=== PATIENT | female | born 1990 | race Caucasian/White ===

== ENCOUNTER 2020-02-05 18:30 | Inpatient (IN) | payer BC ==
[2020-02-05 19:31] LABS: BASO % 0.1 % (0-2.0); EOS % 0.2 % (0-4.5); HEMATOCRIT 36.1 % (32.4-45.2); HEMOGLOBIN 12.2 GM/dL (10.7-15.3); LYMPH % 15.4 % (8-40); MCH 31.8 pg (25.7-33.7); MCHC 33.7 g/dl (32.0-36.0); MEAN CELL VOLUME 94.5 fl (80-96); MEAN PLT VOLUME 9.3 fl (7.5-11.1); MONO % 6.3 % (3.8-10.2); PLATELET COUNT 255 K/MM3 (134-434); RBC 3.82 M/mm3 (3.60-5.2); RDW 12.8 % (11.6-15.6)
[2020-02-05 19:36] LABS: EPI CELLS >36 /uL (0-25.1); HYALINE CASTS 3 /uL (0-3.1); URINE APPEARANCE CLEAR; URINE BACTERIA 1818 /uL (0-1359); URINE BILIRUBIN NEGATIVE (NEGATIVE); URINE COLOR YELLOW; URINE GLUCOSE (UA) NEGATIVE (NEGATIVE); URINE KETONE NEGATIVE (NEGATIVE); URINE LEUK ESTERASE NEGATIVE (NEGATIVE); URINE NITRITE NEGATIVE (NEGATIVE); URINE PROTEIN 3+ (NEGATIVE); URINE RBC 12 /uL (0-23.9); URINE UROBILINOGEN 0.2 mg/dL (0.2-1.0); URINE WBC 41 /uL (0-25.8)
[2020-02-05 19:39] LABS: INR 0.82 (0.83-1.09); PROTHROMBIN TIME (PATIENT) 9.6 SEC (9.7-13.0)
[2020-02-05 19:42] LABS: ACTIVATED PTT 27.8 SECONDS (25.2-36.5)
[2020-02-05 20:06] LABS: ALBUMIN 2.6 g/dl (3.4-5.0); BILIRUBIN,TOTAL 0.2 mg/dL (0.2-1); BLOOD UREA NITROGEN 15.7 mg/dL (7-18); CALCIUM 9.4 mg/dL (8.5-10.1); CREATININE 0.7 mg/dL (0.55-1.3); POTASSIUM 4.2 mmol/L (3.5-5.1); TOT PROT 6.1 g/dl (6.4-8.2); URIC ACID 5.2 mg/dL (2.6-7.2)
[2020-02-05] MEDS: ELECTROLYTE-148 SOLN 1,000 ML IV SCH (21:00)
[2020-02-05] MEDS ORDERED: PROMETHAZINE HCL 25 MG/1 ML VIAL IVPUSH ONE (21:09)
[2020-02-05] MEDS ORDERED: BUTORPHANOL TARTRATE 1 MG/ML VIAL IVPUSH ONE (21:09)
[2020-02-05] MEDS ORDERED: BETAMET ACET/BETAMET NA PH 30 MG/5 ML VIAL IM ONE (21:13)
--- NOTE | 2020-02-05 21:13 | HP ---
Past Medical History - Primary Care Physician PCP:: Monserrat Cee - Admission Chief Complaint: 29yo P0 @ 36.3wks with sever Preeclampsia, +FM, no VB, + mild ctx, no LOF,. currently denies RODRIGUEZ, visual changes, RUQ pain History of Present Illness: 1. Noted +4 Proteinuria and 150/100 BP in the office 2. MHTFR/Protrombin mutations positive, Mother and aunt had DVT, no anticoagulant during History Source: Patient Limitations to Obtaining History: No Limitations - Past Medical History ...: 1 ...Para: 0 ...Term: 0 ...: 0 ...Spon : 0 ...Induced : 0 ...Living Children: 0 ...EDC by Sono: 03/01/20 - Past Surgical History Past Surgical History: Yes: None Hx Myomectomy: No Hx Transabdominal Cerclage: No - Smoking History Smoking history: Never smoked Have you smoked in the past 12 months: No - Alcohol/Substance Use Hx Alcohol Use: No History of Substance Use: reports: None - Social History Usual Living Arrangement: Yes: With Spouse History of Recent Travel: No Home Medications - Allergies Allergies/Adverse Reactions: Allergies Allergy/AdvReac Type Severity Reaction Status Date / Time No Known Allergies Allergy Verified 02/05/20 19:05 - Home Medications Home Medications: Ambulatory Orders Tablet 1 tab PO DAILY 02/05/20 Review of Systems - Review of Systems Constitutional: reports: No Symptoms Eyes: reports: No Symptoms HENT: reports: No Symptoms Neck: reports: No Symptoms Cardiovascular: reports: No Symptoms Respiratory: reports: No Symptoms Gastrointestinal: reports: No Symptoms Genitourinary: reports: No Symptoms Breasts: reports: No Symptoms Reported Musculoskeletal: reports: No Symptoms Integumentary: reports: No Symptoms Neurological: reports: No Symptoms Endocrine: reports: No Symptoms Hematology/Lymphatic: reports: No Symptoms Psychiatric: reports: No Symptoms Physical Exam - Maternity Vital Signs: Vital Signs Temperature 98.0 F 02/05/20 18:50 Pulse Rate 89 02/05/20 19:00 Respiratory Rate 18 02/05/20 19:00 Blood Pressure 158/93 02/05/20 19:00 O2 Sat by Pulse Oximetry (%) Constitutional: Yes: Well Nourished, No Distress, Calm Eyes: Yes: WNL HENT: Yes: WNL, Atraumatic Neck: Yes: WNL, Supple, Trachea Midline Cardiovascular: Yes: WNL, Regular Rate and Rhythm Lungs: Clear to auscultation Breast(s): Yes: WNL - Abdominal Exam/OB Fundal Height: 35 Number of Fetuses: Single Presentation: Vertex Contractions: Yes Regularity: Regular Intensity: Mild Monitor Mode: External Heart Rate (range): 140 Heart Rate Location: Midline Category: I Accelerations: Uniform Decelerations: None - Vaginal Exam/OB Vaginal Bleeding: No Speculum Exam: No Dilatation (cm): 1-2 Effacement (%): 50% Amniotic Membrane Status: Intact Presentation: Vertex/Position Station: -3 - Physical Exam Musculoskeletal: Yes: WNL Extremities: Yes: WNL Integumentary: Yes: WNL ...Motor Strength: WNL Psychiatric: Yes: WNL, Alert, Oriented - Labs Lab Results: CBC, BMP 02/05/20 18:00 02/05/20 18:00 Assessment/Plan 29yo Po @ 36.3wks with sever Preeclapsia, early labor Admit to L&D Monitor BP @ 30min StART MgSo4 for seizure prophylaxis IVP antiHTN for BP <160/105 Labs-CBC,Metabolic pannel, Mg level Q4hr Monitor for Mg toxicity Celestone for FLM, due to prematurity Early labor, regular contructions, will start on Pitocin for augmentation Pain medication as needed We had long discussion re: risks, benefits, and alternatives of labor induction. I explained the options of expectant management awaiting spontaneous labor, induction of labor, and elective section. The risks of uterine tachysystole, distress, uterine rupture, need for emergency C/S, hemorrhage, infection, scarring, etc. were discussed.
[2020-02-05] MEDS ORDERED: BETAMET ACET/BETAMET NA PH 30 MG/5 ML VIAL ONE (21:14)
[2020-02-05] MEDS ORDERED: ELECTROLYTE-148 SOLN 1,000 ML IV SCH (21:15)
[2020-02-05] MEDS ORDERED: MAGNESIUM 4GM/H20 - 4 GM/100 ML IVPB IVPB ONE (21:15)
[2020-02-05] MEDS ORDERED: LABETALOL HCL 5 MG/1 ML (100MG/20 ML VIAL) ONE (21:15)
[2020-02-05] MEDS: LABETALOL HCL 5 MG/1 ML (100MG/20 ML VIAL) IVPUSH SCH ×2 (21:25→21:45)
[2020-02-05] MEDS: MAGNESIUM 4GM/H20 - 4 GM/100 ML IVPB IVPB SCH (21:40)
[2020-02-05] MEDS ORDERED: MAGNESIUM SULFATE 20GM/500ML - 20 GM/500 ML INFUS.BAG ONE (22:10)
[2020-02-05] MEDS: MAGNESIUM SULFATE 20GM/500ML - 20 GM/500 ML INFUS.BAG IVPB SCH (22:15)
[2020-02-06 00:28] LABS: BASO % 0.1 % (0-2.0); EOS % 0.1 % (0-4.5); HEMATOCRIT 35.2 % (32.4-45.2); HEMOGLOBIN 11.7 GM/dL (10.7-15.3); LYMPH % 8.9 % (8-40); MCH 31.4 pg (25.7-33.7); MCHC 33.2 g/dl (32.0-36.0); MEAN CELL VOLUME 94.5 fl (80-96); MEAN PLT VOLUME 9.1 fl (7.5-11.1); MONO % 2.3 % (3.8-10.2); NEUT % 88.6 % (42.8-82.8); PLATELET COUNT 238 K/MM3 (134-434); RBC 3.73 M/mm3 (3.60-5.2); RDW 12.7 % (11.6-15.6); WHITE BLOOD COUNT 15.3 K/mm3 (4.0-10.0)
[2020-02-06] MEDS ORDERED: OXYTOCIN 30 UNITS in 0.9% NS 30 UNIT/500 ML INFUS.BAG IVPB ONE (00:38)
[2020-02-06] MEDS: OXYTOCIN 30 UNITS in 0.9% NS 30 UNIT/500 ML INFUS.BAG IVPB SCH (00:45)
[2020-02-06 00:57] LABS: ALBUMIN 2.4 g/dl (3.4-5.0); BILIRUBIN,DIRECT 0.1 mg/dL (0.0-0.2); BILIRUBIN,TOTAL 0.3 mg/dL (0.2-1); CREATININE 0.7 mg/dL (0.55-1.3); MAGNESIUM 4.7 mg/dL (1.8-2.4); TOT PROT 5.7 g/dl (6.4-8.2)
[2020-02-06 01:57] VITALS: BMI 28.3
[2020-02-06 04:45] LABS: MAGNESIUM 5.9 mg/dL (1.8-2.4)
[2020-02-06 04:48] LABS: CREATININE 0.8 mg/dL (0.55-1.3)
[2020-02-06] MEDS ORDERED: MAGNESIUM SULFATE 20GM/500ML - 20 GM/500 ML INFUS.BAG ONE ×2 (08:20→23:29)
[2020-02-06 08:56] LABS: CREATININE 0.7 mg/dL (0.55-1.3)
[2020-02-06] MEDS ORDERED: AMPICILLIN SODIUM 2 GM VIAL ONE (09:21)
--- NOTE | 2020-02-06 12:05 | EKG ---
Test Reason : Blood Pressure : / mmHG Vent. Rate : 099 BPM Atrial Rate : 099 BPM P-R Int : 114 ms QRS Dur : 084 ms QT Int : 364 ms P-R-T Axes : 068 072 042 degrees QTc Int : 467 ms NORMAL SINUS RHYTHM POSSIBLE LEFT ATRIAL ENLARGEMENT BORDERLINE ECG NO PREVIOUS ECGS AVAILABLE Confirmed by MD Isidro, Jarret ([id number]) on 02/06/2020 12:04:57 PM Referred By: Confirmed By:Jarret Felix MD
--- NOTE | 2020-02-06 12:06 | PN ---
Progress Note, Labor Vaginal Exam #1 Labor Exam Date: 02/06/20 Labor Exam Time: 07:00 Heart Rate (range): 145, Category 1 Dilatation: 3 Effacement (%): 75% Amniotic Membrane Status: Intact Presentation: Vertex/Position Station: -3 Remarks: 29yo P0 @ 36.4wks with sever Preeclampsia, on MgSo4, undergoing IOL no SOB, no RUQ pain or RODRIGUEZ VSS, no s/s of Mg toxicity cont. Pitocin induction monitor labs Q 4hr, currently stable, no worsening
[2020-02-06] MEDS: AMPICILLIN - 1 GM in SODIUM CHLORIDE 100 ML IVPB SCH ×3 (13:20→21:00)
[2020-02-06] MEDS ORDERED: AMPICILLIN SODIUM 1 GM VIAL ONE ×3 (13:25→21:00)
[2020-02-06 14:24] LABS: CREATININE 0.7 mg/dL (0.55-1.3)
[2020-02-06 14:28] LABS: ALBUMIN 2.4 g/dl (3.4-5.0); BASO % 0.1 % (0-2.0); BILIRUBIN,DIRECT 0.1 mg/dL (0.0-0.2); BILIRUBIN,TOTAL 0.3 mg/dL (0.2-1); HEMATOCRIT 37.8 % (32.4-45.2); HEMOGLOBIN 12.5 GM/dL (10.7-15.3); LYMPH % 6.6 % (8-40); MCH 31.5 pg (25.7-33.7); MEAN CELL VOLUME 95.4 fl (80-96); MONO % 4.7 % (3.8-10.2); NEUT % 88.6 % (42.8-82.8); PLATELET COUNT 288 K/MM3 (134-434); RBC 3.97 M/mm3 (3.60-5.2); RDW 12.9 % (11.6-15.6); WHITE BLOOD COUNT 17.7 K/mm3 (4.0-10.0)
[2020-02-06] MEDS: ELECTROLYTE-148 SOLN 1,000 ML IV SCH (16:00)
[2020-02-06] MEDS: MAGNESIUM SULFATE 20GM/500ML - 20 GM/500 ML INFUS.BAG IVPB SCH (16:00)
[2020-02-06] MEDS ORDERED: AMPICILLIN - 2 GM in SODIUM CHLORIDE 100 ML IVPB SCH (17:00)
--- NOTE | 2020-02-06 18:51 | PN ---
Ante-Partal Exam - Subjective Subjective: Pt was examined at 5:30pm and AROM done. She feels better now after Mg dose was lowered. No headache, scotoma, or abdominal pain. BP is high. Vital Signs: Vital Signs Temperature 98.4 F 02/06/20 18:00 Pulse Rate 86 02/06/20 17:00 Respiratory Rate 17 02/06/20 17:00 Blood Pressure 169/83 02/06/20 17:00 O2 Sat by Pulse Oximetry (%) Bleeding: No Headache: No Visual changes: No Right upper quadrant pain: No Pain (scale 1-10): 4 - Contractions Contractions: Yes Regularity: Irregular (q3-5 min) Intensity: Mild/Mod Monitor Mode: External - Exam during Labor Heart Rate: 140 Variability: Minimal Heart Rate Location: Midline Category: I Monitor Accelerations: Present Monitor Decelerations: None Exam: Vaginal Dilatation (cm): 2 Effacement (%): 75 Amniotic Membrane Status: Ruptured Amniotic Fluid: Clear Presentation: Vertex Station: -3 Remarks: Gynecoid pelvimetry - Intrapartum Hemorrhage Risk Medium Risk Factors: Magnesium Sulfate Treatment Risk Score: 1 Risk Level: Medium Risk - Assessment/Plan Assessment/Plan: 29yo P0 with severe PEC undergoing labor indx. 1. PEC- BP is in severe range. Pt requested epidural. I expect the epidural will lower her BP. Otherwise will use Hydralazine 2. labor progressing in latent phase 3. Fetus with Category I tracing and requires no intervention.
[2020-02-06] MEDS ORDERED: FENTANYL/BUPIVACAINE/NS/PF - PCEA - 50 ML DISP.SYRIN EP ONE (19:21)
[2020-02-06] MEDS: FENTANYL/BUPIVACAINE/NS/PF - PCEA - 50 ML DISP.SYRIN EP SCH (19:40)
[2020-02-06 19:50] LABS: ALBUMIN 2.3 g/dl (3.4-5.0); BILIRUBIN,DIRECT 0.1 mg/dL (0.0-0.2); BILIRUBIN,TOTAL 0.3 mg/dL (0.2-1); TOT PROT 5.6 g/dl (6.4-8.2)
[2020-02-06 19:52] LABS: ALBUMIN 2.3 g/dl (3.4-5.0); BILIRUBIN,TOTAL 0.5 mg/dL (0.2-1); CREATININE 0.9 mg/dL (0.55-1.3); POTASSIUM 4.3 mmol/L (3.5-5.1); TOT PROT 5.7 g/dl (6.4-8.2)
[2020-02-06] MEDS ORDERED: diphenhydrAMINE HCL 25 MG CAPSULE (FP) PO ONE (20:38)
[2020-02-06] MEDS ORDERED: diphenhydrAMINE HCL 25 MG CAPSULE (FP) PO PRN (20:54)
[2020-02-06] MEDS ORDERED: BETAMET ACET/BETAMET NA PH 30 MG/5 ML VIAL IM ONE ×2 (21:00→21:45)
[2020-02-06] MEDS ORDERED: SODIUM CHLORIDE 100 ML IVPB ONE (21:01)
[2020-02-06] MEDS ORDERED: hydrALAZINE HCL 20 MG/ML VIAL ONE ×2 (22:18→22:25)
[2020-02-06] MEDS ORDERED: hydrALAZINE HCL 20 MG/ML VIAL IVPUSH ONE (22:20)
[2020-02-06] MEDS ORDERED: LIDOCAINE HCL 1% PRESERVATIVE FREE - 30ML VIAL ONE (22:20)
[2020-02-06] MEDS ORDERED: OXYTOCIN 20 UNITS in 0.9% NS 20 UNIT/1,000 ML INFUS.BAG IV ONE (22:20)
[2020-02-07] MEDS ORDERED: BENZOCAINE 28 GM HEMORRHOIDAL OINTMENT TP PRN (00:54)
[2020-02-07] MEDS ORDERED: oxyCODONE HCL 5 MG TABLET PO PRN (00:54)
[2020-02-07] MEDS ORDERED: BENZOCAINE 20% 57 GM BOTTLE TP PRN (00:54)
[2020-02-07] MEDS ORDERED: WITCH HAZEL 50% (TUCKS) 40 PAD/JAR PAD TP PRN (00:54)
[2020-02-07] MEDS ORDERED: BISACODYL 10 MG SUPP.RECT RC PRN (00:54)
[2020-02-07] MEDS ORDERED: DOCUSATE SODIUM 100 MG CAPSULE (FP) PO PRN (00:57)
--- NOTE | 2020-02-07 01:05 | PROC ---
Obstetrical Vaccum Device - Doc. Following Use of Vaccum Device Indications for use: Bradycardia Risks and Benefits Explained: Yes Consent on Chart: Yes Dilation (0-10): 10 Station: 3 Molding: Yes Position: OA Caput: No Proper placement of cup confirmed: Yes Number of pulls: 1 Number of pop-offs: 0 Duration of time cup on head (min): 0 (15 sec) Maximum pressure attained: 40 (cm Hg) Total time cup near/at maximum pressure (min): 0 (15 sec) Reduction of pressure between contractions: Yes Outcome: Successful Appearance of head on delivery: Normal Cage Cashier present during vacuum extraction: Yes Cage Cashier & nursery staff notified of vacuum extraction: Yes
[2020-02-07 01:06] LABS: CORD BASE EXCESS -8.1 mmol/L (0-2); CORD HCO3 20.6 mmHg (20-29); CORD PCO2 54.2 mmHg (30-78); CORD pH 7.197 (7.14-7.44)
[2020-02-07] MEDS ORDERED: hydrALAZINE HCL 20 MG/ML VIAL IVPUSH ONE ×3 (01:10→01:35)
[2020-02-07 01:11] LABS: CORD HCO3 18.6 mmHg (20-29); CORD PCO2 58.8 mmHg (30-78); CORD pH 7.119 (7.14-7.44)
[2020-02-07] MEDS ORDERED: IBUPROFEN 600 MG TABLET (FP) PO ONE ×2 (02:20→16:45)
[2020-02-07] MEDS ORDERED: ACETAMINOPHEN 325 MG TABLET (FP) ONE ×2 (02:20→16:45)
[2020-02-07 02:24] LABS: ALBUMIN 2.4 g/dl (3.4-5.0); BILIRUBIN,DIRECT 0.1 mg/dL (0.0-0.2); BILIRUBIN,TOTAL 0.3 mg/dL (0.2-1); TOT PROT 5.8 g/dl (6.4-8.2)
[2020-02-07] MEDS: ACETAMINOPHEN 325 MG TABLET (FP) PO PRN ×2 (02:25→16:50)
[2020-02-07] MEDS: IBUPROFEN 600 MG TABLET (FP) PO PRN ×2 (02:25→16:50)
[2020-02-07] MEDS: OXYTOCIN 20 UNITS in 0.9% NS 20 UNIT/1,000 ML INFUS.BAG IV SCH ×2 (03:21→19:00)
[2020-02-07] MEDS ORDERED: LABETALOL HCL 200 MG TABLET (FP) ONE ×4 (03:26→22:30)
[2020-02-07] MEDS: LABETALOL HCL 200 MG TABLET (FP) PO SCH ×6 (03:30→22:00)
[2020-02-07] MEDS ORDERED: NALOXONE HCL 0.4 MG/ML VIAL IVPUSH PRN (05:06)
[2020-02-07] MEDS ORDERED: FENTANYL/BUPIVACAINE/NS/PF - PCEA - 50 ML DISP.SYRIN EP SCH (05:17)
[2020-02-07 06:38] LABS: MAGNESIUM 6.8 mg/dL (1.8-2.4)
[2020-02-07] MEDS ORDERED: SODIUM CHLORIDE 500 ML IV ONE (06:50)
[2020-02-07 07:23] LABS: ALBUMIN 1.9 g/dl (3.4-5.0); BILIRUBIN,TOTAL 0.2 mg/dL (0.2-1); BLOOD UREA NITROGEN 22.3 mg/dL (7-18); POTASSIUM 4.2 mmol/L (3.5-5.1); TOT PROT 4.8 g/dl (6.4-8.2)
[2020-02-07 07:51] LABS: CALCIUM 6.6 mg/dL (8.5-10.1)
--- NOTE | 2020-02-07 08:43 | PN ---
Delivery - Delivery Vaginal Delivery: No Problems, Vacuum Assist Type of Anesthesia: Local, Epidural Episiotomy/Laceration: Midline, Perineal Extension/lac, 4th Degree EBL (cc): 300 Delivery, Single - Stages of Labor Date 1st Stage Initiatied: 02/07/20 Time 1st Stage Initiated: 18:00 Date 2nd Stage Initiated: 02/07/20 Time 2nd Stage Initiated: 22:15 Date of Delivery: 02/07/20 Time of Delivery: 00:04 Time Placenta Delivered: 00:10 Placenta: Yes: Spontaneous, Normal Configuration - Condition of Day Guard/Strategic Marketing Associate Present: Yes Name: Laney Desai Gender: Female Weight: 2.098 kg Position: OA Total Hours ROM (Hrs/Mins): 6hrs/34mins - 1 Minute Total Score: 7 5 Minutes Total Score: 8 - [place] Feeding Plan Initial Plan: Exclusive throughout hospitalization Benefits of Exclusively reinforced: Yes Remarks - Remarks Remarks: 1. During second stage of labor bradycardia was identified. 2. Episiotomy was performed and VAVD was accomplished w/o complications. A 4th degree laceration was encountered. 3. Repair done with sterile technique. 4. The layers of anorectal mucosa, rectovaginal fascia, internal and external anal sphincters were dissected. 5. Anal mucosa was repaired using a 3-0 Vicryl suture with good approximation and hemostasis 6. Internal anal sphincter and preet-anal fascia were repaired using a 3-0 Vicryl suture 7. External anal sphincter was repaired using a 2-0 Vicryl suture 8. The perineal body was repaired using a 2-0 Vicryl suture 9.Vaginal mucosa was repaired using a 2-0 chromic suture 10. Perineal skin was closed using a 2-0 chromic suture Good hemostasis noted. Pt tolerated well.
[2020-02-07] MEDS: AMPICILLIN - 1 GM in SODIUM CHLORIDE 100 ML IVPB SCH (08:45)
[2020-02-07] MEDS: OXYTOCIN 30 UNITS in 0.9% NS 30 UNIT/500 ML INFUS.BAG IVPB SCH (08:47)
[2020-02-07] MEDS ORDERED: OXYTOCIN 20 UNITS in 0.9% NS 20 UNIT/1,000 ML INFUS.BAG IV ONE ×2 (10:24→19:02)
[2020-02-07] MEDS: PRENATAL VITAMINS W/ FOLIC ACID TABLET (FP) PO SCH (10:55)
[2020-02-07 12:26] LABS: BASO % 0.1 % (0-2.0); HEMATOCRIT 30.4 % (32.4-45.2); HEMOGLOBIN 9.9 GM/dL (10.7-15.3); LYMPH % 5.7 % (8-40); MCHC 32.5 g/dl (32.0-36.0); MEAN CELL VOLUME 95.5 fl (80-96); MEAN PLT VOLUME 8.3 fl (7.5-11.1); MONO % 4.9 % (3.8-10.2); NEUT % 89.3 % (42.8-82.8); PLATELET COUNT 224 K/MM3 (134-434); RBC 3.18 M/mm3 (3.60-5.2); RDW 13.4 % (11.6-15.6); WHITE BLOOD COUNT 25.2 K/mm3 (4.0-10.0)
[2020-02-07 13:40] LABS: ANISOCYTOSIS 0; MACROCYTOSIS 0; PLATELET ESTIMATE NORMAL
[2020-02-07] MEDS ORDERED: CEFAZOLIN 2 GM/D5W 2 GM/50 ML ML IVPB ONE ×2 (15:59→22:06)
[2020-02-07] MEDS: ceFAZolin 2 GRAM PREMIX BAG IVPB SCH (16:00)
[2020-02-07] MEDS: MAGNESIUM SULFATE 20GM/500ML - 20 GM/500 ML INFUS.BAG IVPB SCH ×2 (16:57)
[2020-02-07] MEDS: ELECTROLYTE-148 SOLN 1,000 ML IV SCH (19:12)
[2020-02-08 00:53] LABS: BASO % 0.1 % (0-2.0); HEMATOCRIT 27.6 % (32.4-45.2); LYMPH % 12.8 % (8-40); MCH 31.3 pg (25.7-33.7); MCHC 32.6 g/dl (32.0-36.0); MEAN CELL VOLUME 96.2 fl (80-96); MEAN PLT VOLUME 8.7 fl (7.5-11.1); MONO % 6.7 % (3.8-10.2); NEUT % 80.4 % (42.8-82.8); PLATELET COUNT 187 K/MM3 (134-434); RBC 2.87 M/mm3 (3.60-5.2); RDW 13.3 % (11.6-15.6); WHITE BLOOD COUNT 19.8 K/mm3 (4.0-10.0)
[2020-02-08] MEDS: MAGNESIUM 4GM/H20 - 4 GM/100 ML IVPB IVPB SCH (01:01)
[2020-02-08] MEDS: MAGNESIUM SULFATE 20GM/500ML - 20 GM/500 ML INFUS.BAG IVPB SCH (01:02)
[2020-02-08] MEDS: ELECTROLYTE-148 SOLN 1,000 ML IV SCH (01:02)
[2020-02-08 01:15] LABS: ALBUMIN 1.7 g/dl (3.4-5.0); BILIRUBIN,TOTAL 0.2 mg/dL (0.2-1); BLOOD UREA NITROGEN 18.5 mg/dL (7-18); CREATININE 0.7 mg/dL (0.55-1.3); MAGNESIUM 4.2 mg/dL (1.8-2.4); POTASSIUM 4.6 mmol/L (3.5-5.1); TOT PROT 4.6 g/dl (6.4-8.2)
[2020-02-08 01:33] LABS: CALCIUM 6.5 mg/dL (8.5-10.1)
[2020-02-08] MEDS: ACETAMINOPHEN 325 MG TABLET (FP) PO PRN (02:42)
[2020-02-08] MEDS: IBUPROFEN 600 MG TABLET (FP) PO PRN (02:43)
[2020-02-08] MEDS: LABETALOL HCL 200 MG TABLET (FP) PO SCH (07:09)
[2020-02-08] MEDS: ceFAZolin 2 GRAM PREMIX BAG IVPB SCH ×2 (07:24)
--- NOTE | 2020-02-08 08:22 | PN ---
Post Progress Note - Subjective Subjective: Patient without acute complaints. Denies headache, change in vision, right upper quadrant pain. Reports tolerating oral intake without nausea or vomiting. Ambulating without dizziness. Denies fevers or chills. Pain well controlled with oral pain medication. Pumping colostrum. + aguilera, no voiding yet Passing flatus. Post Day: 2 Type of Delivery: Vacuum Assist Vag Del Vital Signs: Vital Signs Temperature 98.5 F 02/08/20 02:00 Pulse Rate 69 02/08/20 02:00 Respiratory Rate 18 02/08/20 02:00 Blood Pressure 125/75 02/08/20 02:00 O2 Sat by Pulse Oximetry (%) 99 02/07/20 03:00 Breast Exam: Yes: Soft. No: Cracked Nipples Uterus: Yes: Fundus Firm, Fundus below umbilicus Abdomen/GI: Yes: Abdomen soft, Passing flatus, Tolerating PO. No: Abdominal Distention, Tender Lochia: Yes: Rubra Lochia, amount: Small Extremities: No: Edema Perineum: Yes: Laceration Activity: Ambulating - Labs Labs: CBC WBC 19.8 K/mm3 (4.0-10.0) H 02/08/20 00:30 RBC 2.87 M/mm3 (3.60-5.2) L 02/08/20 00:30 Hgb 9.0 GM/dL (10.7-15.3) L 02/08/20 00:30 Hct 27.6 % (32.4-45.2) L 02/08/20 00:30 MCV 96.2 fl (80-96) H 02/08/20 00:30 MCH 31.3 pg (25.7-33.7) 02/08/20 00:30 MCHC 32.6 g/dl (32.0-36.0) 02/08/20 00:30 RDW 13.3 % (11.6-15.6) 02/08/20 00:30 Plt Count 187 K/MM3 (134-434) 02/08/20 00:30 MPV 8.7 fl (7.5-11.1) 02/08/20 00:30 Absolute Neuts (auto) 15.9 K/mm3 (1.5-8.0) H 02/08/20 00:30 Neutrophils % 80.4 % (42.8-82.8) 02/08/20 00:30 Neutrophils % (Manual) 86.7 % (42.8-82.8) H 02/07/20 11:50 Band Neutrophils % 5.1 % 02/07/20 11:50 Lymphocytes % 12.8 % (8-40) D 02/08/20 00:30 Lymphocytes % (Manual) 5.1 % (8-40) L 02/07/20 11:50 Monocytes % 6.7 % (3.8-10.2) 02/08/20 00:30 Monocytes % (Manual) 2 % (3.8-10.2) L 02/07/20 11:50 Eosinophils % 0.0 % (0-4.5) 02/08/20 00:30 Eosinophils % (Manual) 0.0 % (0-4.5) 02/07/20 11:50 Basophils % 0.1 % (0-2.0) 02/08/20 00:30 Basophils % (Manual) 0.0 % (0-2.0) 02/07/20 11:50 Myelocytes % (Man) 1 % (0-2) 02/07/20 11:50 Promyelocytes % (Man) 0 % (0-2) 02/07/20 11:50 Blast Cells % (Manual) 0 % (0-0) 02/07/20 11:50 Nucleated RBC % 0 % (0-0) 02/08/20 00:30 Metamyelocytes 0 % (0-2) 02/07/20 11:50 Hypochromia 0 02/07/20 11:50 Platelet Estimate Normal 02/07/20 11:50 Polychromasia 0 02/07/20 11:50 Poikilocytosis 0 02/07/20 11:50 Anisocytosis 0 02/07/20 11:50 Microcytosis 0 02/07/20 11:50 Macrocytosis 0 02/07/20 11:50 Assessment/Plan 29 yo PPD # 1 s/p VAVD, complicated by 4th degree laceration, s/p IOL for preeclampsia 1. PEC - BPs stable, on labetalol 200 TID with hold parameters Diuresing well, Cr decreasing, adequate UOP No sx PEC at this time, will continue to monitor Appreciate renal consult 2. CBC stable, no signs of anemia 3. Rh negative 4. Pain well controlled, will hold motrin 5. 4th degree laceration - discussed bowel regimen, encouraged to avoid constipation 6. Pumping colostrum 7. DC planning pending stable BPs, renal consult
[2020-02-08] MEDS: PRENATAL VITAMINS W/ FOLIC ACID TABLET (FP) PO SCH (09:28)
[2020-02-08] MEDS ORDERED: LABETALOL HCL 200 MG TABLET (FP) PO PRN (13:25)
[2020-02-08] MEDS: NIFEdipine E.R. 30 MG TABLET PO SCH (13:43)
--- NOTE | 2020-02-08 14:27 | CON.NEP ---
Consult Consult Specialty:: Nephrology Referred by:: OB Reason for Consultation:: hypertension - History of Present Illness Chief Complaint: Elevated blood pressures History of Present Illness: This is a 29-year-old woman with no significant past medical history who presents at 36 weeks gestation with hypertension and proteinuria and admitted for preeclampsia now status post vaginal delivery. Patient seen and examined at the bedside. She offers no acute complaints at this time. She has some swelling mostly in her ankles and down. She has no shortness of breath, chest pain, palpitations, headache, blurry vision, dizziness, nausea, vomiting or diarrhea. She was not told on any of her prior visits that her blood pressure was high over that she had protein in her urine. She has no family history of significant for hypertension. This is her first . She denies excessive caffeine intake. She denies tobacco use. She denies excessive NSAID use. - History Source History Provided By: Patient Limitations to Obtaining History: No Limitations - Past Surgical History Past Surgical History: Yes: None - Alcohol/Substance Use Hx Alcohol Use: No History of Substance Use: reports: None - Smoking History Smoking history: Never smoked Have you smoked in the past 12 months: No - Social History History of Recent Travel: No Home Medications - Allergies Allergies/Adverse Reactions: Allergies Allergy/AdvReac Type Severity Reaction Status Date / Time No Known Allergies Allergy Verified 02/05/20 19:05 - Home Medications Home Medications: Ambulatory Orders Tablet 1 tab PO DAILY 02/05/20 Family Medical History Family History: Unremarkable Review of Systems - Review of Systems Constitutional: reports: No Symptoms Eyes: reports: No Symptoms HENT: reports: No Symptoms Neck: reports: No Symptoms Cardiovascular: reports: No Symptoms Respiratory: reports: No Symptoms Gastrointestinal: reports: No Symptoms Genitourinary: reports: No Symptoms Musculoskeletal: reports: No Symptoms Integumentary: reports: No Symptoms Neurological: reports: No Symptoms Endocrine: reports: No Symptoms Hematology/Lymphatic: reports: No Symptoms Nephrology Consult - Height Height: 5 ft 2 in - Weight Weight: 70.307 kg - BMI Body Mass Index (BMI): 28.3 - Lab Results CBC,BMP: CBC, BMP 02/08/20 00:30 02/08/20 00:30 Anion Gap: Anion Gap Anion Gap 5 MMOL/L (8-16) L 02/08/20 00:30 - Physical Examination Vital Signs: Vital Signs Temperature 98.4 F 02/08/20 14:00 Pulse Rate 77 02/08/20 14:00 Respiratory Rate 18 02/08/20 14:00 Blood Pressure 136/77 02/08/20 14:00 O2 Sat by Pulse Oximetry (%) 99 02/07/20 03:00 Constitutional: Yes: Well Nourished, No Distress, Calm Eyes: Yes: Conjunctiva Clear HENT: Yes: Atraumatic, Normocephalic Neck: Yes: Supple Cardiovascular: Yes: Regular Rate and Rhythm Respiratory: Yes: Regular. No: SOB Gastrointestinal: Yes: Soft Extremities: No: Cold, Cool, Cyanosis, Erythema Edema: Yes Edema: LLE: Trace, RLE: Trace Neurological: Yes: Alert, Oriented Assessment/Plan 29-year-old woman with no significant past medical history who presents at 36 weeks gestation with hypertension and proteinuria and admitted for preeclampsia now status post vaginal delivery. 1. hypertension likely secondary to preeclampsia 2. 36 weeks gestation status post vaginal delivery 3. Elevated liver enzymes 4. Anemia 5. Leukocytosis likely reactive We will check urine protein creatinine ratio to quantify proteinuria. Repeat CMP and CBC in a.m. Change antihypertensives to nifedipine extended release 30 mg once daily. Will continue labetalol when necessary for systolic blood pressure greater than 160 or diastolic blood pressure greater 100. Diet change a low-sodium diet. Minimize NSAID use if possible. Discussed the diagnosis of preeclampsia and the symptoms are all. Patient was also advised of the symptoms of hypo-tension and advised to be cautious when changing positions and and ambulating. Thank you will follow up. Garrison Huerta DO
[2020-02-08] MEDS ORDERED: SENNOSIDES/DOCUSATE COMBO (SENNA PLUS) TABLET (UD) PO PRN (22:00)
[2020-02-09] MEDS: ACETAMINOPHEN 325 MG TABLET (FP) PO PRN (06:48)
[2020-02-09 09:07] LABS: BASO % 0.2 % (0-2.0); EOS % 0.7 % (0-4.5); HEMATOCRIT 29.6 % (32.4-45.2); HEMOGLOBIN 9.7 GM/dL (10.7-15.3); MCH 31.4 pg (25.7-33.7); MCHC 32.7 g/dl (32.0-36.0); MEAN CELL VOLUME 95.9 fl (80-96); MEAN PLT VOLUME 7.6 fl (7.5-11.1); MONO % 4.6 % (3.8-10.2); NEUT % 80.5 % (42.8-82.8); PLATELET COUNT 241 K/MM3 (134-434); RBC 3.08 M/mm3 (3.60-5.2); RDW 13.3 % (11.6-15.6); WHITE BLOOD COUNT 14.9 K/mm3 (4.0-10.0)
[2020-02-09] MEDS: PRENATAL VITAMINS W/ FOLIC ACID TABLET (FP) PO SCH (09:17)
[2020-02-09] MEDS: NIFEdipine E.R. 30 MG TABLET PO SCH (09:18)
[2020-02-09 09:35] LABS: ALBUMIN 2.3 g/dl (3.4-5.0); BILIRUBIN,TOTAL 0.4 mg/dL (0.2-1); BLOOD UREA NITROGEN 12.8 mg/dL (7-18); CALCIUM 8.3 mg/dL (8.5-10.1); CREATININE 0.6 mg/dL (0.55-1.3); POTASSIUM 4.3 mmol/L (3.5-5.1); TOT PROT 5.7 g/dl (6.4-8.2)
--- NOTE | 2020-02-09 10:04 | PN ---
Post Progress Note - Subjective Subjective: Patient without acute complaints. She reports feeling well, epis/laseration without pain. Denies headache, change in vision, right upper quadrant pain. Reports tolerating regular diet without nausea or vomiting. Ambulating without dizziness. Denies fevers or chills. Pain well controlled with oral pain medication. Pumping colostrum. Good urine output Passing flatus, BM. Post Day: 2 Type of Delivery: Vacuum Assist Vag Del Vital Signs: Vital Signs Temperature 98.5 F 02/08/20 22:00 Pulse Rate 95 H 02/08/20 22:00 Respiratory Rate 18 02/08/20 22:00 Blood Pressure 142/75 02/08/20 22:00 O2 Sat by Pulse Oximetry (%) 99 02/07/20 03:00 Breast Exam: Yes: Soft Uterus: Yes: Fundus Firm Abdomen/GI: Yes: Abdomen soft, Passing flatus, Tolerating PO Lochia: Yes: Rubra Lochia, amount: Small Extremities: Yes: Calves non-tender, Edema (trace bilateral pedal) Perineum: Yes: Intact, Episiotomy, Laceration Activity: Ambulating - Labs Labs: CBC WBC 14.9 K/mm3 (4.0-10.0) H 02/09/20 08:30 RBC 3.08 M/mm3 (3.60-5.2) L 02/09/20 08:30 Hgb 9.7 GM/dL (10.7-15.3) L 02/09/20 08:30 Hct 29.6 % (32.4-45.2) L 02/09/20 08:30 MCV 95.9 fl (80-96) 02/09/20 08:30 MCH 31.4 pg (25.7-33.7) 02/09/20 08:30 MCHC 32.7 g/dl (32.0-36.0) 02/09/20 08:30 RDW 13.3 % (11.6-15.6) 02/09/20 08:30 Plt Count 241 K/MM3 (134-434) D 02/09/20 08:30 MPV 7.6 fl (7.5-11.1) D 02/09/20 08:30 Absolute Neuts (auto) 12.0 K/mm3 (1.5-8.0) H 02/09/20 08:30 Neutrophils % 80.5 % (42.8-82.8) 02/09/20 08:30 Neutrophils % (Manual) 86.7 % (42.8-82.8) H 02/07/20 11:50 Band Neutrophils % 5.1 % 02/07/20 11:50 Lymphocytes % 14.0 % (8-40) 02/09/20 08:30 Lymphocytes % (Manual) 5.1 % (8-40) L 02/07/20 11:50 Monocytes % 4.6 % (3.8-10.2) 02/09/20 08:30 Monocytes % (Manual) 2 % (3.8-10.2) L 02/07/20 11:50 Eosinophils % 0.7 % (0-4.5) D 02/09/20 08:30 Eosinophils % (Manual) 0.0 % (0-4.5) 02/07/20 11:50 Basophils % 0.2 % (0-2.0) 02/09/20 08:30 Basophils % (Manual) 0.0 % (0-2.0) 02/07/20 11:50 Myelocytes % (Man) 1 % (0-2) 02/07/20 11:50 Promyelocytes % (Man) 0 % (0-2) 02/07/20 11:50 Blast Cells % (Manual) 0 % (0-0) 02/07/20 11:50 Nucleated RBC % 0 % (0-0) 02/09/20 08:30 Metamyelocytes 0 % (0-2) 02/07/20 11:50 Hypochromia 0 02/07/20 11:50 Platelet Estimate Normal 02/07/20 11:50 Polychromasia 0 02/07/20 11:50 Poikilocytosis 0 02/07/20 11:50 Anisocytosis 0 02/07/20 11:50 Microcytosis 0 02/07/20 11:50 Macrocytosis 0 02/07/20 11:50 Assessment/Plan 29 yo PPD # 2 s/p VAVD, complicated by 4th degree perineal laceration. The pt was induced at EGA 36w3d for severe pre-eclampsia. She is afebrile and clinically doing well. 1. PEC - BPs improved and stable. Pt is now on Procardia and labetalol PRN. Appreciate Dr. Huerta consult Adequate UOP No sx PEC at this time, will continue to monitor 2. Hct stable, asymptomatic for anemia; WBC declining. 3. Rh positive 4. Pain is well controlled 5. 4th degree laceration is healing well - discussed bowel regimen, encouraged to avoid constipation 6. Continue pumping 7. Plan for d/c: The pt is asking for d/c home today or tomorrow. The baby will not be discharged until tomorrow, if stable. Since the BP is still labile, and antihypertensive regimen was changed recently, plan to d/c home tomorrow.
--- NOTE | 2020-02-09 10:38 | DS ---
Physical Exam-DECAL MAKER Vital Signs: Vital Signs Temperature 98.5 F 02/08/20 22:00 Pulse Rate 95 H 02/08/20 22:00 Respiratory Rate 18 02/08/20 22:00 Blood Pressure 142/75 02/08/20 22:00 O2 Sat by Pulse Oximetry (%) 99 02/07/20 03:00 Constitutional: Yes: Well Nourished, No Distress, Calm Eyes: Yes: WNL, Conjunctiva Clear, EOM Intact HENT: Yes: WNL, Atraumatic, Normocephalic Neck: Yes: WNL, Supple, Trachea Midline Cardiovascular: Yes: WNL, Regular Rate and Rhythm Respiratory: Yes: WNL, Regular, CTA Bilaterally Gastrointestinal: Yes: WNL, Normal Bowel Sounds, Soft ...Rectal Exam: Yes: Deferred Renal/: Yes: WNL ....Post : Yes: Uterus firm, Uterus non-tender, Slight lochia rubra Breast(s): Yes: WNL Musculoskeletal: Yes: WNL Extremities: Yes: WNL Edema: Yes Edema: LLE: Trace, RLE: Trace Integumentary: Yes: WNL Neurological: Yes: WNL, Alert, Oriented ...Motor Strength: WNL Psychiatric: Yes: WNL, Alert, Oriented Labs: CBC, BMP 02/09/20 08:30 02/09/20 08:30 Delivery - Delivery Vaginal Delivery: No Problems, Vacuum Assist Type of Anesthesia: Local, Epidural Episiotomy/Laceration: Midline, Perineal Extension/lac, 4th Degree EBL (cc): 300 Delivery, Single - Stages of Labor Date 1st Stage Initiatied: 02/07/20 Time 1st Stage Initiated: 18:00 Date 2nd Stage Initiated: 02/07/20 Time 2nd Stage Initiated: 22:15 Date of Delivery: 02/07/20 Time of Delivery: 00:04 Time Placenta Delivered: 00:10 Placenta: Yes: Spontaneous, Normal Configuration - Condition of Director Of Materials Management/Facilities Coordinator Present: Yes Name: Laney Desai Infant Gender: Female Weight: 2.098 kg Position: OA Total Hours ROM (Hrs/Mins): 6hrs/34mins - 1 Minute Total Score: 7 5 Minutes Total Score: 8 - [place] Feeding Plan Initial Plan: Exclusive throughout hospitalization Benefits of Exclusively reinforced: Yes Remarks - Remarks Remarks: 1. During second stage of labor bradycardia was identified. 2. Episiotomy was performed and VAVD was accomplished w/o complications. A 4th degree laceration was encountered. 3. Repair done with sterile technique. 4. The layers of anorectal mucosa, rectovaginal fascia, internal and external anal sphincters were dissected. 5. Anal mucosa was repaired using a 3-0 Vicryl suture with good approximation and hemostasis 6. Internal anal sphincter and preet-anal fascia were repaired using a 3-0 Vicryl suture 7. External anal sphincter was repaired using a 2-0 Vicryl suture 8. The perineal body was repaired using a 2-0 Vicryl suture 9.Vaginal mucosa was repaired using a 2-0 chromic suture 10. Perineal skin was closed using a 2-0 chromic suture Good hemostasis noted. Pt tolerated well. Discharge Summary Problems reviewed: Yes Reason For Visit: ADMIT FOR INDUCTION FOR PRE-ECLAMPSIA Labor induction for severe preeclampsia Procedures: Principal: Vacuum assisted vaginal delivery Other Procedures: Repair of 4th degree obstetric laceration Hospital Course: Improved BP. Normalizing labs. Clinical improvement. Health Concerns: Maintaining normal BP Plan of Treatment: Continue blood pressure medications Goals: Maintaining normal BP. Improving anemia. Condition: Good - Instructions Diet, Activity, Other Instructions: Physical activity Resume your normal everyday activity as tolerated no heavy lifting or exercise until seen by your surgeon. You may walk unlimited katherin of and climb stairs. You may resume driving the car when you feel safe and comfortable behind the wheel. No sexual activity as instructed. Wound care If you have a bandage, leave it on, and keep dry for 48-72 hours. After that time discard the outer bandage. If they are tapes on the skin under the out of bandage leave them in place. They will peel off in the next 7 to 10 days. Do Not Peel them off. You may shower the day after surgery. If there are tapes present on the skin, you may shower over them. Diet There are no dietary restrictions. Eat healthy, high-fiber foods. Drink 6 to 8 glasses of liquid each day. This will assist in keeping your bowels are regular. Pain management You may take Tylenol or acetaminophen or Ibuprofen (for example, Motrin, Advil etc.) from my pain prescription medication is ordered should be taken as prescribed for moderate to severe pain. Call MD for any of the following: Severe pain not relieved by medication Fever of 101 or higher Excessive bleeding or drainage on dressing Inability to urinate Referrals: Juan Carlos Lombardi MD [Staff Physician] - 1 Week Disposition: HOME - Home Medications Comprehensive Discharge Medication List: Ambulatory Orders Tablet 1 tab PO DAILY 02/05/20 Prescription Drug Monitoring Program (I-STOP) results: I-STOP not reviewed
--- NOTE | 2020-02-09 13:30 | PN ---
Progress Note, Physician Chief Complaint: Hypertension History of Present Illness: Seen and examined at the bedside awake and alert offers no acute complaints no RODRIGUEZ, CP, sob, fever, chills no dizziness or lightheadedness - Current Medication List Current Medications: Active Medications Acetaminophen (Tylenol -) 650 mg PO Q3H PRN PRN Reason: PAIN Last Admin: 02/09/20 06:48 Dose: 650 mg Documented by: Benzocaine (Americaine 20% [place] -) 1 spray TP PRN PRN PRN Reason: PAIN Last Admin: 02/08/20 02:41 Dose: 1 spray Documented by: Benzocaine (Americaine Ointment -) 1 applic TP PRN PRN PRN Reason: PAIN Bisacodyl (Dulcolax Suppository -) 10 mg RC PRN PRN PRN Reason: CONSTIPATION Diphenhydramine HCl (Benadryl -) 25 mg PO Q1H PRN PRN Reason: ITCHING Last Admin: 02/06/20 20:40 Dose: 25 mg Documented by: Docusate Sodium (Colace -) 100 mg PO BID PRN PRN Reason: CONSTIPATION Last Admin: 02/07/20 10:38 Dose: 100 mg Documented by: Parenteral Electrolytes (Plasma-Lyte 148 -) 1,000 mls @ 125 mls[facility] [place] Last Admin: 02/08/20 01:02 Dose: Not Given Documented by: Parenteral Electrolytes (Plasma-Lyte 148 -) 1,000 mls @ 100 mls/hr IV [facility] Last Admin: 02/07/20 19:12 Dose: Not Given Documented by: Oxytocin/Sodium Chloride (Normal Saline+20 Units Oxytocin -) 20 unit in 1,000 mls @ 125 mls[facility]hr [facility] [place] Last Admin: 02/07/20 19:00 Dose: 125 mls/hr Documented by: Ibuprofen (Motrin -) 600 mg PO Q4H PRN PRN Reason: PAIN Last Admin: 02/08/20 02:43 Dose: 600 mg Documented by: Labetalol HCl (Normodyne -) 200 mg PO Q6H PRN PRN Reason: HYPERTENSION Naloxone HCl (Narcan -) 0.4 mg IVPUSH PRN PRN PRN Reason: Sedation Nifedipine (Procardia Xl -) 30 mg PO DAILY [facility] Last Admin: 02/09/20 09:18 Dose: 30 mg Documented by: Oxycodone HCl (Roxicodone -) 5 mg PO Q6H PRN PRN Reason: PAIN Multivit/Folic Acid/Iron ( Vitamins (Sjr) -) 1 tab PO DAILY [facility] Last Admin: 02/09/20 09:17 Dose: 1 tab Documented by: Senna/Docusate Sodium (Pericolace -) 2 tablet PO HS PRN PRN Reason: CONSTIPATION Witch Anjana/Glycerin (Tucks Pads -) 1 pad TP PRN PRN PRN Reason: PAIN - Objective Vital Signs: Vital Signs Temperature 97.6 F 02/09/20 10:00 Pulse Rate 93 H 02/09/20 10:00 Respiratory Rate 15 02/09/20 10:00 Blood Pressure 130/99 02/09/20 10:00 O2 Sat by Pulse Oximetry (%) 99 02/07/20 03:00 Constitutional: Yes: No Distress Neck: Yes: Supple Cardiovascular: Yes: Regular Rate and Rhythm Respiratory: Yes: Regular Edema: Yes Edema: LLE: Trace, RLE: Trace Neurological: Yes: Alert, Oriented Labs: CBC, BMP 02/09/20 08:30 02/09/20 08:30 INR, PTT INR 0.82 (0.83-1.09) L 02/05/20 18:00 Fibrinogen 477.0 mg/dL (238-498) 02/05/20 18:00 Assessment/Plan 29-year-old woman with no significant past medical history who presents at 36 weeks gestation with hypertension and proteinuria and admitted for preeclampsia now status post vaginal delivery. 1. hypertension secondary to preeclampsia 2. 36 weeks gestation status post vaginal delivery 3. Elevated liver enzymes 4. Anemia 5. Leukocytosis likely reactive BP is moderated on Nifedipine ER 30mg Daily, will need to continue on discharge Laboratory studies confirmatory of preeclampsia (UPCR 1.7) LFT's stable/improved, no platelet abnormalities Should be maintained on low sodium diet on discharge. Pain control w/o NSIADs if possible Advised to log BP twice daily at home. Discussed symptoms of hypotension so pt is aware. To follow up in our office in 2 weeks for BP monitoring Rx for Nifedpine ER called in to [facility] [place]. Thank you will follow up. Garrison Huerta DO
[2020-02-09] MEDS: ELECTROLYTE-148 SOLN 1,000 ML IV SCH ×3 (19:04→23:47)
[2020-02-09] MEDS: OXYTOCIN 20 UNITS in 0.9% NS 20 UNIT/1,000 ML INFUS.BAG IV SCH (19:04)
[2020-02-09] MEDS: MAGNESIUM SULFATE 20GM/500ML - 20 GM/500 ML INFUS.BAG IVPB SCH (19:06)
[2020-02-10] MEDS: NIFEdipine E.R. 30 MG TABLET PO SCH (11:30)
[2020-02-10] MEDS: PRENATAL VITAMINS W/ FOLIC ACID TABLET (FP) PO SCH (11:31)
[2020-02-10 14:52] VITALS: BP 136/85; PULSE 91; TEMP 98
== END 2020-02-10 13:30 | disposition home or self-care (01) | DRG 768 ==
LOC: JDEL 18:30 → NEWFOCUS 18:30 → JLDR 20:25 → J3W 02-08 00:51
PROVIDERS: ADMIT Obstetrics & Gynecology; ATTEND Obstetrics & Gynecology
PROC: 3E033VJ Introduction of Other Hormone into Peripheral Vein, Percutaneous Approach (ICD-10-PCS; principal; 2020-02-06)
PROC: 10907ZC Drainage of Amniotic Fluid, Therapeutic from Products of Conception, Via Natural or Artificial Opening (ICD-10-PCS; 2020-02-06)
PROC: 0DQP0ZZ Repair Rectum, Open Approach (ICD-10-PCS; 2020-02-07)
PROC: 10D07Z6 Extraction of Products of Conception, Vacuum, Via Natural or Artificial Opening (ICD-10-PCS; 2020-02-07)
PROC: 0KQM0ZZ Repair Perineum Muscle, Open Approach (ICD-10-PCS; 2020-02-07)
PROC: 0W8NXZZ Division of Female Perineum, External Approach (ICD-10-PCS; 2020-02-07)
DX: O14.14 Severe pre-eclampsia complicating childbirth (principal); Z37.0 Single live birth; O99.113 Other diseases of the blood and blood-forming organs and certain disorders involving the immune mechanism complicating pregnancy, third trimester; D68.52 Prothrombin gene mutation; O76 Abnormality in fetal heart rate and rhythm complicating labor and delivery; O60.13X0 Preterm labor second trimester with preterm delivery third trimester, not applicable or unspecified; O70.3 Fourth degree perineal laceration during delivery; O15.2 Eclampsia complicating the puerperium; Z3A.36 36 weeks gestation of pregnancy; R74.0 Nonspecific elevation of levels of transaminase and lactic acid dehydrogenase [LDH]; O90.81 Anemia of the puerperium; D64.9 Anemia, unspecified; D72.829 Elevated white blood cell count, unspecified
CPT/HCPCS: 36415; 36600; 59409; 80053; 80076; 81003; 82565; 82803; 83735; 84156; 84550; 85025; 85384; 85610; 85730; 86762; 86850; 86900; 86901; 93005; 93010; 96372; U0003

== ENCOUNTER 2023-10-25 08:05 | Inpatient (IN) | payer BC ==
[2023-10-25] MEDS: ELECTROLYTE-148 SOLN 1,000 ML IV SCH (09:00)
[2023-10-25 09:11] VITALS: BMI 30.2
[2023-10-25] MEDS: CITRIC ACID/SODIUM CITRATE 30 ML UNIT-DOSE CUP PO ONE (11:00)
[2023-10-25] MEDS ORDERED: FENTANYL CITRATE/PF 50 MCG/ML VIAL ONE (11:58)
[2023-10-25] MEDS ORDERED: morphine SULFATE/PF 1 MG/2 ML (2cc Syringe - QUVA) ONE (11:58)
[2023-10-25] MEDS ORDERED: ceFAZolin SODIUM 1 GM VIAL ONE (12:22)
[2023-10-25 13:11] LABS: CORD HCO3 20.8 mmHg (20-29); CORD PCO2 54.4 mmHg (30-78)
[2023-10-25] MEDS ORDERED: OXYTOCIN 10 UNITS/ML VIAL ONE (13:12)
[2023-10-25 13:14] LABS: CORD HCO3 23.6 mmHg (20-29); CORD PCO2 64.3 mmHg (30-78); CORD pH 7.182 (7.14-7.44)
[2023-10-25] MEDS ORDERED: BENZOCAINE 28 GM HEMORRHOIDAL OINTMENT TP PRN (13:28)
[2023-10-25] MEDS ORDERED: METHYLERGONOVINE MALEATE 0.2 MG/1 ML AMP IM PRN (13:28)
[2023-10-25] MEDS ORDERED: WITCH HAZEL 50% (TUCKS) 40 PAD/JAR PAD TP PRN (13:28)
[2023-10-25] MEDS ORDERED: BENZOCAINE 20% 57 GM BOTTLE TP PRN (13:28)
[2023-10-25] MEDS ORDERED: OXYTOCIN 20 UNITS in 0.9% NS 20 UNIT/1,000 ML INFUS.BAG IV ONE (14:33)
[2023-10-25] MEDS ORDERED: IBUPROFEN 800 MG/8 ML IJ IVPB ONE (14:45)
[2023-10-25] MEDS: IBUPROFEN 800 MG/8 ML IJ IVPB PRN (14:53)
[2023-10-25] MEDS: OXYTOCIN 20 UNITS in 0.9% NS 20 UNIT/1,000 ML INFUS.BAG IV SCH (14:54)
[2023-10-25] MEDS: CEFAZOLIN 1 GM in DEXTROSE 5%-WATER - 50 ML IVPB SCH (17:42)
[2023-10-25] MEDS: ACETAMINOPHEN 325 MG TABLET (FP) PO PRN (21:00)
[2023-10-25] MEDS: SIMETHICONE 80 MG TAB.CHEW (FP) PO PRN (21:00)
[2023-10-26] MEDS ORDERED: oxyCODONE HCL 5 MG TABLET PO PRN (01:28)
[2023-10-26] MEDS: IBUPROFEN 600 MG TABLET (FP) PO PRN (05:30)
[2023-10-26 06:13] VITALS: RESP 18
[2023-10-26] MEDS: oxyCODONE HCL 5 MG TABLET PO PRN (07:19)
[2023-10-26 07:43] LABS: BASO % 0.2 % (0-2.0); EOS % 0.5 % (0-4.5); HEMATOCRIT 29.9 % (32.4-45.2); HEMOGLOBIN 10.2 GM/dL (10.7-15.3); MCH 31.9 pg (25.7-33.7); MCHC 34.1 g/dl (32.0-36.0); MEAN CELL VOLUME 93.4 fl (80-96); MEAN PLT VOLUME 7.1 fl (7.5-11.1); MONO % 5.2 % (3.8-10.2); NEUT % 86.1 % (42.8-82.8); PLATELET COUNT 174 10^3/uL (134-434); RDW 13.2 % (11.6-15.6); WHITE BLOOD COUNT 8.1 K/mm3 (4.0-10.0)
[2023-10-26] MEDS: PRENATAL VITAMINS W/ FOLIC ACID TABLET (FP) PO SCH (09:21)
[2023-10-26] MEDS: FLUoxetine HCL 20 MG CAPSULE PO SCH (09:21)
[2023-10-26] MEDS: ENOXAPARIN NA (PORCINE) 40 MG/0.4 ML DISP.SYRIN SQ SCH (09:21)
[2023-10-26] MEDS ORDERED: BISACODYL 10 MG SUPP.RECT RC PRN (13:28)
[2023-10-26] MEDS: SENNOSIDES/DOCUSATE COMBO (SENNA PLUS) TABLET (UD) PO PRN (22:54)
[2023-10-28 08:40] LABS: BASO % 0.3 % (0-2.0); EOS % 1.2 % (0-4.5); HEMATOCRIT 29.9 % (32.4-45.2); HEMOGLOBIN 9.9 GM/dL (10.7-15.3); LYMPH % 19.6 % (8-40); MCH 31.5 pg (25.7-33.7); MCHC 33.1 g/dl (32.0-36.0); MEAN CELL VOLUME 95.4 fl (80-96); MEAN PLT VOLUME 6.8 fl (7.5-11.1); MONO % 6.9 % (3.8-10.2); PLATELET COUNT 213 10^3/uL (134-434); RBC 3.14 M/mm3 (3.60-5.2); RDW 13.8 % (11.6-15.6); WHITE BLOOD COUNT 4.1 K/mm3 (4.0-10.0)
[2023-10-28 11:47] VITALS: BP 115/78; PULSE 82; TEMP 97.8
== END 2023-10-28 12:20 | disposition home or self-care (01) | DRG 788 ==
LOC: JLDR 08:05 → J3W 16:00
PROVIDERS: ADMIT Obstetrics & Gynecology; ATTEND Obstetrics & Gynecology
PROC: 10D00Z1 Extraction of Products of Conception, Low, Open Approach (ICD-10-PCS; principal; 2023-10-25)
DX: O34.219 Maternal care for unspecified type scar from previous cesarean delivery (principal); O36.5930 Maternal care for other known or suspected poor fetal growth, third trimester, not applicable or unspecified; Z3A.36 36 weeks gestation of pregnancy; Z37.0 Single live birth
CPT/HCPCS: 36415; 36600; 82803; 85025; 86850; 86900; 86901; 88307-TC

== ENCOUNTER 2024-03-29 01:23 | Emergency (ER) | payer BC ==
[2024-03-29 01:34] VITALS: BP 126/69; PULSE 68; RESP 18; TEMP 98.1; BMI 27.8
[2024-03-29] MEDS ORDERED: ONDANSETRON 4 MG/2 ML VIAL ONE (01:54)
[2024-03-29] MEDS ORDERED: KETOROLAC TROMETHAMINE 30 MG/1 ML VIAL ONE (01:54)
[2024-03-29] MEDS: KETOROLAC TROMETHAMINE 30 MG/1 ML VIAL IVPUSH ONE (02:01)
[2024-03-29] MEDS: SODIUM CHLORIDE 1,000 ML IV ONE (02:01)
[2024-03-29] MEDS: ONDANSETRON 4 MG/2 ML VIAL IVPUSH ONE (02:01)
[2024-03-29 02:32] LABS: HEMATOCRIT 38.3 % (32.4-45.2); HEMOGLOBIN 12.9 GM/dL (10.7-15.3); MCH 30.6 pg (25.7-33.7); MCHC 33.8 g/dl (32.0-36.0); MEAN CELL VOLUME 90.5 fl (80-96); MEAN PLT VOLUME 6.7 fl (7.5-11.1); PLATELET COUNT 329 10^3/uL (134-434); RBC 4.24 M/mm3 (3.60-5.2); RDW 12.6 % (11.6-15.6); WHITE BLOOD COUNT 5.9 K/mm3 (4.0-10.0)
[2024-03-29 02:43] LABS: EPI CELLS 6 /uL (0-25.1); HYALINE CASTS 0 /uL (0-3.1); URINE APPEARANCE CLEAR; URINE BACTERIA 33 /uL (0-1359); URINE BILIRUBIN NEGATIVE (NEGATIVE); URINE COLOR YELLOW; URINE GLUCOSE (UA) NEGATIVE (NEGATIVE); URINE KETONE NEGATIVE (NEGATIVE); URINE LEUK ESTERASE NEGATIVE (NEGATIVE); URINE NITRITE NEGATIVE (NEGATIVE); URINE PROTEIN NEGATIVE (NEGATIVE); URINE RBC 12 /uL (0-23.9); URINE UROBILINOGEN 0.2 mg/dL (0.2-1.0); URINE WBC 2 /uL (0-25.8)
[2024-03-29 02:51] LABS: CALCIUM 8.8 mg/dL (8.5-10.1)
[2024-03-29 02:52] LABS: ALBUMIN 3.8 g/dl (3.4-5.0); BLOOD UREA NITROGEN 19.4 mg/dL (7-18)
[2024-03-29 02:55] LABS: CREATININE 0.6 mg/dL (0.55-1.3)
[2024-03-29 02:57] LABS: BILIRUBIN,TOTAL 0.3 mg/dL (0.2-1); TOT PROT 6.8 g/dl (6.4-8.2)
== END 2024-03-29 03:56 | disposition home or self-care (01) ==
LOC: FER 01:23
PROC: 3E0333Z Introduction of Anti-inflammatory into Peripheral Vein, Percutaneous Approach (ICD-10-PCS; principal; 2024-03-29)
PROC: 3E033GC Introduction of Other Therapeutic Substance into Peripheral Vein, Percutaneous Approach (ICD-10-PCS; 2024-03-29)
DX: R10.11 Right upper quadrant pain (principal); R11.0 Nausea
CPT/HCPCS: 36415; 76705-TC; 80053; 81003; 83690; 85027; 99284-25

== ENCOUNTER 2024-06-07 04:48 | Day surgery (SDC) | payer BC ==
[2024-05-12 13:26] VITALS: BMI 27.4
[2024-06-07] MEDS ORDERED: BUPIVACAINE HCL/PF 0.25% (2.5MG/ML) 10 ML VIAL ONE ×2 (08:17→08:44)
[2024-06-07] MEDS ORDERED: PROPOFOL 20 ML ONE (09:23)
[2024-06-07] MEDS ORDERED: MIDAZOLAM HCL 2 MG/2 ML SINGLE DOSE VIAL ONE (09:23)
[2024-06-07] MEDS ORDERED: ROCURONIUM BROMIDE 50 MG/5 ML SYRINGE ONE (09:23)
[2024-06-07] MEDS ORDERED: DEXMEDETOMIDINE HCL 200 MCG/2 ML IVPB ONE (09:53)
[2024-06-07] MEDS ORDERED: CEFOXITIN SODIUM 1 GM IVPB ONE ×2 (09:53→09:55)
[2024-06-07] MEDS ORDERED: HYDROmorphone HCl 2 MG/ML VIAL ONE (10:05)
[2024-06-07] MEDS: BUPIVACAINE HCL/PF 0.25% (2.5MG/ML) 10 ML VIAL IJ ONE ×2 (10:08)
[2024-06-07] MEDS ORDERED: NEOSTIGMINE METHYLSULFATE 0.5 MG/1 ML - 10 ML MDV ONE (10:19)
[2024-06-07] MEDS ORDERED: KETOROLAC TROMETHAMINE 30 MG/1 ML VIAL ONE (10:39)
[2024-06-07] MEDS ORDERED: GLYCOPYRROLATE 0.2 MG/1 ML VIAL ONE (10:39)
[2024-06-07] MEDS ORDERED: SODIUM CHLORIDE 0.9% P/F 10 ML VIAL IJ ONE (10:39)
[2024-06-07] MEDS ORDERED: DEXAMETHASONE SOD PHOSPHATE 4 MG/1 ML VIAL ONE (10:39)
[2024-06-07] MEDS ORDERED: ONDANSETRON 4 MG/2 ML VIAL ONE (10:39)
[2024-06-07] MEDS ORDERED: PHENYLEPHRINE HCL 10 MG/1 ML SINGLE DOSE VIAL ONE (10:39)
[2024-06-07] MEDS ORDERED: ONDANSETRON 4 MG/2 ML VIAL IVPUSH PRN (10:50)
[2024-06-07] MEDS ORDERED: oxyCODONE HCL 5 MG TABLET PO PRN (10:50)
[2024-06-07] MEDS ORDERED: LACTATED RINGERS SOLUTION 1,000 ML IV SCH (11:00)
[2024-06-07] MEDS ORDERED: ACETAMINOPHEN INJECTION 100 ML ONE (11:31)
[2024-06-07] MEDS: ACETAMINOPHEN 1000 MG/100 ML BAG IVPB ONE (11:39)
[2024-06-07 12:46] VITALS: RESP 18; TEMP 97.6
[2024-06-07 15:48] VITALS: BP 111/68; PULSE 61
== END 2024-06-07 14:45 | disposition home or self-care (01) ==
LOC: JASU-SURG 04:48
PROVIDERS: ATTEND Surgery
PROC: 0FT44ZZ Resection of Gallbladder, Percutaneous Endoscopic Approach (ICD-10-PCS; principal; 2024-06-07 10:07)
DX: K80.80 Other cholelithiasis without obstruction (principal)
CPT/HCPCS: 81025; 88304-TC; 94760; J0131